=== PATIENT | female | born 1995 | race Caucasian/White ===

== ENCOUNTER 2017-09-13 08:12 | Day surgery (SDC) | payer OTHER ==
[2017-09-13] MEDS: LR 1,000 ML IV (09:19)
[2017-09-13 09:24] LABS: CONTROL LINE UCG INT CTR LINE PRESENT; URINE PREG TEST NEGATIVE (NEGATIVE)
[2017-09-13] MEDS ORDERED: fentaNYL 250 MCG/5 ML INJECTION (J3010) As Ordered (09:43)
[2017-09-13] MEDS ORDERED: ROCURONIUM BROMIDE 50 MG/5 ML VIAL As Ordered (09:43)
[2017-09-13] MEDS ORDERED: LIDOCAINE 2% INJ 100 MG/5 ML SDV (FOR ANES.) As Ordered (09:43)
[2017-09-13] MEDS ORDERED: PROPOFOL 200 MG/20 ML VIAL As Ordered (09:43)
[2017-09-13] MEDS ORDERED: MIDAZOLAM INJ 2 MG/2 ML VIAL (J2250) As Ordered (09:43)
[2017-09-13] MEDS ORDERED: dexameTHASONE 4 MG/ML 1ML VIAL (J1100) As Ordered (11:03)
[2017-09-13] MEDS ORDERED: METOCLOPRAMIDE INJ 10MG/2ML VIAL (J2765) As Ordered ×2 (11:03→12:26)
[2017-09-13] MEDS ORDERED: ONDANSETRON 4MG/2ML VIAL (J2405) As Ordered ×2 (11:03→11:55)
[2017-09-13] MEDS ORDERED: KETOROLAC 60 MG/2 ML VIAL (J1885) As Ordered (11:03)
[2017-09-13] MEDS ORDERED: GLYCOPYRROLATE INJ 0.2 MG/ML 2 ML VIAL As Ordered (11:03)
[2017-09-13] MEDS ORDERED: NEOSTIGMINE 10 MG/10 ML VIAL (J2710) As Ordered (11:03)
[2017-09-13] MEDS: BUPIVACAINE HCL 0.5% 30 ML VIAL As Ordered (11:24)
[2017-09-13] MEDS: ONDANSETRON 4MG/2ML VIAL (J2405) IV (12:03)
[2017-09-13] MEDS ORDERED: LR 1,000 ML IV (12:15)
[2017-09-13] MEDS ORDERED: fentaNYL 100 MCG/2 ML INJECTION (J3010) IV (12:15)
[2017-09-13] MEDS ORDERED: HYDROcodone/APAP LIQUID 7.5-325MG 15ML UDC (LORTAB ELIXIR) PO (12:15)
[2017-09-13] MEDS ORDERED: PERCOCET 5MG/325MG TAB PO (12:15)
[2017-09-13] MEDS ORDERED: IBUPROFEN 800 MG TAB PO (12:15)
[2017-09-13] MEDS: METOCLOPRAMIDE INJ 10MG/2ML VIAL (J2765) IV (12:37)
== END 2017-09-13 13:55 | disposition home or self-care (01) ==
LOC: M SDC 08:12
DX: J35.01 Chronic tonsillitis (principal); F32.9 Major depressive disorder, single episode, unspecified; F41.9 Anxiety disorder, unspecified; Z88.2 Allergy status to sulfonamides; Z88.1 Allergy status to other antibiotic agents; Z79.3 Long term (current) use of hormonal contraceptives
CPT/HCPCS: 42826

== ENCOUNTER 2017-09-15 16:58 | Emergency (ER) | payer OTHER ==
[2017-09-15 20:29] LABS: BASO % 0.2 % (0.0-1.0); EOS % 0.3 % (0.0-3.0); HEMATOCRIT 41.1 % (36.0-47.0); HEMOGLOBIN 13.5 g/dl (12.0-16.0); IMMATURE GRANULOCYTE % 0.2 % (0-3.0); LYMPH # 2.1 10^3/uL (1.5-6.5); LYMPH % 20.3 % (24.0-44.0); MEAN CORPUSCULAR HEMOGLOBIN 28.8 pg (27.0-33.0); MEAN CORPUSCULAR HGB CONC 32.8 g/dl (32.0-36.5); MEAN CORPUSCULAR VOLUME 87.8 fl (80.0-96.0); MONO # 0.5 10^3/uL (0.0-0.8); MONO % 5.1 % (0.0-5.0); NEUTROPHILS # 7.7 10^3/uL (1.8-7.7); NEUTROPHILS % 73.9 % (36.0-66.0); PLATELET COUNT, AUTOMATED 250 10^3/uL (150-450); RED BLOOD COUNT 4.68 10^6/uL (4.00-5.40); RED CELL DISTRIBUTION WIDTH 12.9 % (11.5-14.5); WHITE BLOOD COUNT 10.4 10^3/uL (4.0-10.0)
[2017-09-15] MEDS: NS 1,000 ML IV (20:30)
[2017-09-15] MEDS: ONDANSETRON 4MG/2ML VIAL (J2405) IV (20:31)
[2017-09-15 21:07] LABS: ALBUMIN 3.3 GM/DL (3.2-5.2); ALBUMIN/GLOBULIN RATIO 0.75 (1.00-1.93); ALKALINE PHOSPHATASE 71 U/L (45-117); ALT/SGPT 37 U/L (12-78); ANION GAP 8 MEQ/L (8-16); AST/SGOT 21 U/L (7-37); BILIRUBIN,DIRECT 0.1 MG/DL (0.0-0.2); BILIRUBIN,TOTAL 0.5 MG/DL (0.2-1.0); BLOOD UREA NITROGEN 7 MG/DL (7-18); CALCIUM LEVEL 8.7 MG/DL (8.5-10.1); CARBON DIOXIDE LEVEL 24 MEQ/L (21-32); CHLORIDE LEVEL 107 MEQ/L (98-107); CREATININE FOR GFR 0.54 MG/DL (0.55-1.30); GLOMERULAR FILTRATION RATE > 60.0 (>60); GLUCOSE, FASTING 78 MG/DL (70-100); LIPASE 83 U/L (73-393); POTASSIUM SERUM 3.6 MEQ/L (3.5-5.1); SODIUM LEVEL 139 MEQ/L (136-145); TOTAL PROTEIN 7.7 GM/DL (6.4-8.2)
[2017-09-15] MEDS: diphenhydrAMINE INJ 50MG/ML VIAL (J1200) IV (21:13)
[2017-09-15] MEDS: methylPREDNISolone INJ 125 MG/2 ML VIAL (J2930) IV (21:13)
== END 2017-09-15 22:05 | disposition home or self-care (01) ==
LOC: M ED 16:58
DX: R11.0 Nausea (principal); E86.0 Dehydration; G89.18 Other acute postprocedural pain; Z79.899 Other long term (current) drug therapy; Z88.1 Allergy status to other antibiotic agents
CPT/HCPCS: J1200

== ENCOUNTER 2018-09-27 09:13 | Inpatient (IN) | payer MEDICAID, OTHER ==
[~2018-09-27] VITALS: Ht 170.2 cm; Wt 106.6 kg
[~2018-09-27 09:13] MED LIST: AMOX500T PO; CEPH500C PO; HYDR1SOL; IBUP80TA; NEXP1IMP SC; REGL10TA6 PO
[2018-09-27] MEDS ORDERED: CITA20TA6 PO (09:21)
[2018-09-27] MEDS ORDERED: HYOS125TA PO (09:21)
[2018-09-27] MEDS ORDERED: ALL10TAB28 PO (09:21)
[2018-09-27] MEDS ORDERED: HYDR-3363 PO (09:21)
[2018-09-27 09:52] LABS: HEMATOCRIT 44.7 % (36.0-47.0); HEMOGLOBIN 14.7 g/dl (12.0-15.5); MEAN CORPUSCULAR HEMOGLOBIN 28.3 pg (27.0-33.0); MEAN CORPUSCULAR HGB CONC 32.9 g/dl (32.0-36.5); PLATELET COUNT, AUTOMATED 330 10^3/uL (150-450); WHITE BLOOD COUNT 10.5 10^3/uL (4.0-10.0)
[2018-09-27 10:23] LABS: HCG, SERUM QUALITATIVE NEGATIVE (NEGATIVE)
[2018-09-27 10:29] LABS: ACETAMINOPHEN LEVEL < 2.0 UG/ML (10.0-30.0); ALBUMIN 4.1 GM/DL (3.2-5.2); ALT/SGPT 64 U/L (12-78); BILIRUBIN,DIRECT < 0.1 MG/DL (0.0-0.2); BILIRUBIN,TOTAL 0.4 MG/DL (0.2-1.0); BLOOD UREA NITROGEN 14 MG/DL (7-18); CALCIUM LEVEL 9.4 MG/DL (8.5-10.1); CARBON DIOXIDE LEVEL 23 MEQ/L (21-32); CHLORIDE LEVEL 108 MEQ/L (98-107); CREATININE FOR GFR 0.77 MG/DL (0.55-1.30); ETHYL ALCOHOL (ETHANOL) < 0.003 % (0.000-0.010); GLOMERULAR FILTRATION RATE > 60.0 (>60); GLUCOSE, FASTING 134 MG/DL (70-100); POTASSIUM SERUM 3.9 MEQ/L (3.5-5.1); SALICYLATE LEVEL < 1.7 MG/DL (5.0-30.0); SODIUM LEVEL 139 MEQ/L (136-145); TOTAL PROTEIN 7.7 GM/DL (6.4-8.2)
[2018-09-27 10:36] LABS: AMPHETAMINES LEVEL URINE NEGATIVE (NEGATIVE); BARBITURATES URINE NEGATIVE (NEGATIVE); BENZODIAZEPINES URINE NEGATIVE (NEGATIVE); CANNABINOIDS URINE NEGATIVE (NEGATIVE); COCAINE METABOLITE URINE NEGATIVE (NEGATIVE); METHADONE URINE NEGATIVE (NEGATIVE); OPIATES URINE NEGATIVE (NEGATIVE); PHENCYCLIDINE URINE NEGATIVE (NEGATIVE)
[2018-09-27] MEDS ORDERED: FLON1SPR NARES (11:53)
[2018-09-27] MEDS ORDERED: MOM 30ML SUSPENSION UDC PO PRN (14:00)
[2018-09-27] MEDS ORDERED: MAALOX 30 ML SUSP *UDC PO PRN (14:00)
[2018-09-27 14:50] VITALS: BP 138/78
[2018-09-27 18:00] VITALS: BP 121/69
[2018-09-27] MEDS: traZODone 50 MG TAB PO PRN (21:13)
[2018-09-28 06:52] VITALS: BP 120/72
--- NOTE | 2018-09-28 12:24 | HPEPDOC ---
[facility] Medical History & Physical Date of Admission Sep 28, 2018 History and Physical CHIEF COMPLAINT: Suicidal ideation HISTORY OF PRESENT ILLNESS: Patient is a 23-year-old female with past medical hi story of depression, anxiety, PTSD, borderline personality disorder presented with complaints of suicidal ideation. Patient has been in mental health unit of Hospital for evaluation and treatment. She states that she feels much better today and that talking to her roommate helps with her anxiety and no longer has thoughts of hurting herself. She misses her son but otherwise reported no other complaints including any fever, chills, pain or discomfort. PAST MEDICAL HISTORY: 1. Depression/anxiety. 2. PTSD. 3. Borderline personality disorder. PAST SURGICAL HISTORY: 1. Cholecystectomy. 2. Tonsillectomy. SOCIAL HISTORY: Rare alcohol use. Denies tobacco or illicit drug use. FAMILY HISTORY: Mother has diabetes mellitus ALLERGIES: Please see below. REVIEW OF SYSTEMS: 10 point review of system negative except as stated in HPI HOME MEDICATIONS: Please see below. PHYSICAL EXAMINATION: General: No acute distress, Alert Eyes: Normal sclera, EOMI, RILEY HENT: Atraumatic, neck supple, moist mucous membranes Cardiovascular: Normal rate, normal rhythm. No murmurs appreciated. Pulmonary: Clear to auscultation b/l, no wheezing GI: Soft, nontender, nondistended Skin: Warm and dry Neuro: CN grossly intact. No focal deficits. Strengths equal b/l. Psych: oriented x 3 LABORATORY DATA: See below. MICROBIOLOGY: Please see below. ASSESSMENT AND PLAN: 1. Depression/Anxiety. - Presented with suicidal ideation now reportedly better with no further thoughts. - c/w home medications. - c/w care per Psychiatry. 2. PTSD - c/w therapy and management per Psych. Vital Signs Vital Signs Date Time Temp Pulse Resp B/P (MAP) Pulse Ox O2 Delivery O2 Flow Rate FiO2 09/28/18 06:52 97.7 65 16 120/72 (88) 09/27/18 14:38 98 09/27/18 12:59 Room Air Home Medications Scheduled Cetirizine HCl (Cetirizine HCl) 10 Mg Tablet, 10 MG PO QHS Citalopram Hydrobromide (Citalopram HBr) 20 Mg Tablet, 20 MG PO QHS Scheduled PRN Fluticasone Propionate (Flonase Allergy Relief) 9.9 Ml [place].susp, 2 SPRAY NARES DAILY PRN for NASAL CONGESTION Hydroxyzine HCl (Hydroxyzine HCl) 25 Mg Tablet, 25 MG PO BID PRN for ANXIETY/AGITATION Hyoscyamine Sulfate (Hyoscyamine Sulfate) 0.125 Mg Tab.subl, 0.125 MG PO TID PRN for ABDOMINAL PAIN Allergies Coded Allergies: sulfamethoxazole (Verified Allergy, Unknown, 09/27/18) trimethoprim (Verified Allergy, Unknown, 09/27/18) SARA BELLA MD Sep 28, 2018 12:24
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
[2018-09-28 18:00] VITALS: BP 128/82
[2018-09-28] MEDS: ACETAMINOPHEN TAB 650MG DOSE (2X325MG) PO PRN (20:30)
[2018-09-28] MEDS: CitaloPRAM (CeleXA) 10 MG TABLET PO SCH (21:29)
[2018-09-28] MEDS: hydrOXYzine 25 MG TAB PO PRN (21:29)
[2018-09-28] MEDS: traZODone 50 MG TAB PO PRN (21:29)
[2018-09-29 06:54] VITALS: BP 97/46
[2018-09-29] MEDS: hydrOXYzine 25 MG TAB PO PRN (09:09)
[2018-09-29] MEDS: ACETAMINOPHEN TAB 650MG DOSE (2X325MG) PO PRN (09:09)
--- NOTE | 2018-09-29 11:56 | MHIPN ---
DATE: 09/29/2018 SUBJECTIVE: "I feel more relaxed today. I spoke to my son and my ". OBJECTIVE: She is a 23-year-old female, , living with her and 6-year-old son, who was admitted because of suicidal ideation. This is her first psychiatric hospitalization, though she has history of depression for a long time. She is being followed up at [facility]. She reports she is feeling better, less depressed and there are no suicidal thoughts. MENTAL STATUS EXAMINATION: She is casually dressed with clean clothes, good personal hygiene. Behavior is cooperative. Eye contact is normal. Psychomotor activity is normal. Speech rate, rhythm and volume are good. Mood is mildly depressed and affect is mood congruent. Thought process linear, goal directed. Thought content: Denied any suicidal or homicidal thoughts. Denied any paranoid or bizarre delusions. She is alert and oriented to time, place and person. Her memory is intact. Her insight and judgment are fair. DIAGNOSES: Depressive disorder unspecified. Rule out major depressive disorder. Post traumatic stress disorder. Borderline personality traits by history. VITAL SIGNS: Temperature 98.4, pulse is 56, respiratory rate 18, blood pressure 97/46. PLAN: To continue current medication. Continue individual and group therapy. Coordination of care was provided with social work, nursing staff and treatment team. ESTIMATED LENGTH OF STAY: 4-5 days.
[2018-09-29 18:00] VITALS: BP 119/65
[2018-09-29] MEDS: CitaloPRAM (CeleXA) 10 MG TABLET PO SCH (21:54)
[2018-09-29] MEDS: traZODone 50 MG TAB PO PRN (21:54)
[2018-09-30 06:37] VITALS: BP 110/55
[2018-09-30] MEDS: hydrOXYzine 25 MG TAB PO PRN ×2 (08:29→21:41)
--- NOTE | 2018-09-30 08:54 | MHIPNPDOC ---
[facility] Progress Note Progress Note DATE OF SERVICE: 09/30/18 HISTORY: Per Admit note: The patient has a long history of depressive disorder. However, for the last 1 month, her depression has increased. It has worsened in a couple of days. She had suicidal thoughts. She wanted to get help before it worsened further and came to the hospital. Complains of decreased sleep, decreased energy, decreased concentration, suicidal thoughts. The patient has a history of racing thoughts, some mood swings which she relates it to a diagnosis of borderline personality traits. Her current stressors are her works out of town several times and a relationship problem with her [id number]. OBJECTIVE: She is a 23-year-old female, , living with her and 6-year-old son, who was admitted because of suicidal ideation. This is her first psychiatric hospitalization, though she has history of depression for a long time. She is being followed up at [facility]. Pt seen today and reports she's feeling better after medication increased yesterday. States her anxiety is improving with prn vistaril but doesn't believe she needs to take it first thing in the morning as Dr Medley recommended as her anxiety isn't too bad and goes away on it's own in less than an hour without taking anything, plus it makes her fatigued. Recommended she just take vistaril when anxiety overwhelming and not subsiding on it's own. Is sleeping well. Is attending groups and finding beneficial. Denies SI/HI, hallucinations, delusions. Feels safe here. MENTAL STATUS EXAMINATION: She is casually dressed with clean clothes, good personal hygiene. Behavior is cooperative. Eye contact is normal. Psychomotor activity is normal. Speech rate, rhythm and volume are good. Mood is mildly anxious and affect is mood congruent. Thought process linear, goal directed. Thought content: Denied any suicidal or homicidal thoughts. Denied any paranoid or bizarre delusions. She is alert and oriented to time, place and person. Her memory is intact. Her insight and judgment are fair. DIAGNOSES: Depressive disorder unspecified. Rule out major depressive disorder. Post traumatic stress disorder. Borderline personality traits by history. PLAN: To continue current medication. Continue individual and group therapy. Coordination of care was provided with social work, nursing staff and treatment team. Citalopram 30 mg QHS Hydroxyzine 25 mg Q6HP PRN PO ANXIETY Trazodone 50 mg QHSP PRN PO INSOMNIA Vital Signs Vital Signs Date Time Temp Pulse Resp B/P (MAP) Pulse Ox O2 Delivery O2 Flow Rate FiO2 09/30/18 06:37 98.6 60 14 110/55 (73) 09/27/18 14:38 98 09/27/18 12:59 Room Air Current Medications Current Medications Acetaminophen (Tylenol Tab) 650 mg Q6HP PRN PO HEADACHE or DISCOMFORT Last administered on 09/29/18at 09:09; Start 09/27/18 at 14:00 Al Hydrox/Mg Hydrox/Simethicone (Mylanta) 30 ml Q4HP PRN PO HEARTBURN/INDIGESTION; Start 09/27/18 at 14:00 Citalopram Hydrobromide (CeleXA) 30 mg QHS PO Last administered on 09/29/18at 21:54; Start 09/28/18 at 21:00 Home Med (Med Rec Complete!) ASDIRECTED XX ; Start 09/27/18 at 12:00; Stop 09/27/18 at 12:00; Status DC Hydroxyzine HCl (Atarax) 25 mg Q6HP PRN PO ANXIETY Last administered on 09/30/18at 08:29; Start 09/28/18 at 11:30 Magnesium Hydroxide (Milk Of Magnesia) 30 ml DAILYPRN PRN PO CONSTIPATION; Start 09/27/18 at 14:00 Trazodone HCl (Desyrel) 50 mg QHSP PRN PO INSOMNIA Last administered on 09/29/18at 21:54; Start 09/27/18 at 14:00 Allergies Coded Allergies: sulfamethoxazole (Verified Allergy, Unknown, 09/27/18) trimethoprim (Verified Allergy, Unknown, 09/27/18) LAURA PARKER DO Sep 30, 2018 8:54 am
[2018-09-30 18:23] VITALS: BP 128/73
[2018-09-30] MEDS: CitaloPRAM (CeleXA) 10 MG TABLET PO SCH (21:41)
[2018-09-30] MEDS: traZODone 50 MG TAB PO PRN (21:41)
[2018-10-01 06:49] VITALS: BP 99/50
[2018-10-01 18:00] VITALS: BP 122/60
[2018-10-01] MEDS: ACETAMINOPHEN TAB 650MG DOSE (2X325MG) PO PRN (20:28)
[2018-10-01] MEDS: CitaloPRAM (CeleXA) 10 MG TABLET PO SCH (22:18)
[2018-10-01] MEDS: traZODone 50 MG TAB PO PRN (22:18)
[2018-10-01] MEDS: hydrOXYzine 25 MG TAB PO PRN (22:18)
[2018-10-02 06:38] VITALS: BP 99/52
[2018-10-02 18:04] VITALS: BP 129/79
[2018-10-02] MEDS: traZODone 50 MG TAB PO PRN (21:10)
[2018-10-02] MEDS: hydrOXYzine 25 MG TAB PO PRN (21:10)
[2018-10-02] MEDS: CitaloPRAM (CeleXA) 10 MG TABLET PO SCH (21:11)
[2018-10-03 07:01] VITALS: BP 112/53
[2018-10-03] MEDS ORDERED: HYDR-3363 PO (08:57)
[2018-10-03] MEDS ORDERED: CELE10TA PO (08:57)
[2018-10-03] MEDS ORDERED: TRAZO50TA PO (08:57)
--- NOTE | 2018-10-03 08:58 | MHDSPDOC ---
[facility] Discharge Summary Discharge Summary DATE OF ADMISSION: Sep 27, 2018 at 1:47 pm DATE OF DISCHARGE: October 03, 2018 DISCHARGE DIAGNOSES: Depressive disorder unspecified. Rule out major depressive disorder. Post traumatic stress disorder. Borderline personality traits by history. REASON FOR ADMISSION: Per Admit note: The patient has a long history of depressive disorder. However, for the last 1 month, her depression has increased. It has worsened in a couple of days. She had suicidal thoughts. She wanted to get help before it worsened further and came to the hospital. Complains of decreased sleep, decreased energy, decreased concentration, suicidal thoughts. The patient has a history of racing thoughts, some mood swings which she relates it to a diagnosis of borderline personality traits. Her current stressors are her works out of town several times and a relationship problem with her [id number]. CONSULTANTS INVOLVED: none TREATMENT AND PROGRESS ON THE UNIT : Pt was admitted to [facility], seen for psychiatric assessment and restarted on her outpatient celexa increased to 30mg daily for mood and anxiety. She was provided vistaril 25mg q6hr prn anxiety and trazodone 50mg qhs prn insomnia. Pt found her medications beneficial and tolerated them well. She attended groups daily during her stay. Her symptoms improved with treatment. On day of discharge she denied depression, anxiety, insomnia, SI/HI, hallucinations, delusions. She was discharged home after family meeting with her with follow-up at [facility]. She felt safe for discharge. DISCHARGE ASSESSMENT: Pt seen today and reports she's feels good and that her medication is beneficial and she's tolerating it well. States her anxiety is improving with prn vistaril. Is sleeping well. Is attending groups and finding beneficial. Denies depression, anxiety, insomnia, SI/HI, hallucinations, delusions. Feels safe to be discharged home with her . MENTAL STATUS EXAMINATION ON DISCHARGE: She is casually dressed with clean clothes, good personal hygiene. Behavior is cooperative. Eye contact is normal. Psychomotor activity is normal. Speech rate, rhythm and volume are good. Mood is euthymic and full. Thought process linear, goal directed. Thought content: Denied any suicidal or homicidal thoughts. Denied any paranoid or bizarre delusions. She is alert and oriented to time, place and person. Her memory is intact. Her insight and judgment are good. MEDICATIONS ON DISCHARGE: Citalopram 30 mg QHS Hydroxyzine 25 mg Q6HP PRN PO ANXIETY Trazodone 50 mg QHSP PRN PO INSOMNIA PLAN/FOLLOWUP ARRANGEMENTS: D/c home with follow-up at [facility]. The amount of time spent in the coordination of care for this patient was approximately 30 minutes. Vital Signs/I&Os Vital Signs Date Time Temp Pulse Resp B/P (MAP) Pulse Ox O2 Delivery O2 Flow Rate FiO2 10/03/18 07:01 98.4 67 16 112/53 (72) 09/27/18 14:38 98 09/27/18 12:59 Room Air Medications Scheduled Cetirizine HCl (Cetirizine HCl) 10 Mg Tablet, 10 MG PO QHS, (Reported) Citalopram Hydrobromide (Celexa) 10 Mg Tablet, 30 MG PO QHS for mood, #30 Scheduled PRN Fluticasone Propionate (Flonase Allergy Relief) 9.9 Ml [place].susp, 2 SPRAY NARES DAILY PRN for NASAL CONGESTION, (Reported) Hydroxyzine HCl (Hydroxyzine HCl) 25 Mg Tablet, 25 MG PO Q6HP PRN for ANXIETY, #30 Hyoscyamine Sulfate (Hyoscyamine Sulfate) 0.125 Mg Tab.subl, 0.125 MG PO TID PRN for ABDOMINAL PAIN, (Reported) Trazodone HCl (Trazodone HCl) 50 Mg Tablet, 50 MG PO QHSP PRN for INSOMNIA, #10 Allergies Coded Allergies: sulfamethoxazole (Verified Allergy, Unknown, 09/27/18) trimethoprim (Verified Allergy, Unknown, 09/27/18) LAURA PARKER DO Oct 03, 2018 8:58 am
== END 2018-10-03 12:20 | disposition home or self-care (01) | DRG 754 ==
LOC: M ED 09:13 → M ED INP 13:47 → M PSY 14:49
PROVIDERS: ADMIT Psychiatry & Neurology Psychiatry; ATTEND Psychiatry & Neurology Psychiatry
DX: F32.9 Major depressive disorder, single episode, unspecified (principal); R45.851 Suicidal ideations; F43.10 Post-traumatic stress disorder, unspecified; F60.3 Borderline personality disorder; Z79.899 Other long term (current) drug therapy; Z88.2 Allergy status to sulfonamides; Z88.8 Allergy status to other drugs, medicaments and biological substances

== ENCOUNTER 2019-05-16 16:13 | Emergency (ER) | payer MEDICAID, OTHER ==
[~2019-05-16] VITALS: Ht 170.2 cm; Wt 109.0 kg
[~2019-05-16 16:13] MED LIST changes: +ALL10TAB29 PO; +CELE10TA PO; +CITA20TA6 PO; +FLON1SPR NARES; +HYDR-3363 PO; +HYOS125TA PO; +TRAZ1TAB10 PO
[2019-05-16] MEDS ORDERED: ACETAMINOPHEN 500 MG TAB PO ONE (18:00)
[2019-05-16] MEDS ORDERED: KETOROLAC 60 MG/2 ML VIAL (J1885) IM ONE (18:00)
[2019-05-16] MEDS ORDERED: BENZOCAINE 20% GEL 9GM TUBE (ANBESOL MAX STRENGTH) TOP ONE (18:00)
[2019-05-16 18:58] VITALS: BP 124/73
== END 2019-05-16 19:02 | disposition home or self-care (01) ==
LOC: M ED 16:13
DX: K08.89 Other specified disorders of teeth and supporting structures (principal); F33.9 Major depressive disorder, recurrent, unspecified; F41.9 Anxiety disorder, unspecified; F43.10 Post-traumatic stress disorder, unspecified; Z79.899 Other long term (current) drug therapy; Z88.2 Allergy status to sulfonamides; Z88.8 Allergy status to other drugs, medicaments and biological substances
CPT/HCPCS: 96372; 99283; J1885

== ENCOUNTER → 2019-09-16 | Outpatient (CLI) | payer OTHER | LOC: M LABSMTC 11:08 | PROVIDERS: ATTEND Family Medicine | DX: Z11.59 Encounter for screening for other viral diseases (principal); Z20.828 Contact with and (suspected) exposure to other viral communicable diseases | CPT/HCPCS: 87502; U0002 ==

== ENCOUNTER → 2021-05-14 | Outpatient (REF) | payer OTHER ==
[~2021-05-14] MED LIST changes: -ALL10TAB29 PO; +CETI-24 PO
== END ==
LOC: M LAB REF 15:43
PROVIDERS: ATTEND Physician Assistant
DX: R43.8 Other disturbances of smell and taste (principal)

== ENCOUNTER 2022-09-05 01:21 | Outpatient (CLI) | payer OTHER ==
[~2022-09-05] VITALS: Ht 170.2 cm; Wt 73.5 kg
[2022-09-05] VITALS (10 sets, daily range): BP systolic 92–124; BP diastolic 50–71
[~2022-09-05 01:21] MED LIST changes: +ETON68IM SC; -NEXP1IMP SC
[2022-09-05] MEDS ORDERED: NOXI1TAB PO (01:40)
[2022-09-05] MEDS ORDERED: PRENTAB9 PO (01:40)
[2022-09-05] MEDS ORDERED: HOME MED LIST COMPLETE! XX SCH (01:45)
[2022-09-05 03:32] LABS: APPEARANCE, URINE CLEAR (CLEAR); BACTERIA, URINE AUTO NEGATIVE (NEGATIVE); BILIRUBIN, URINE AUTO NEGATIVE (NEGATIVE); BLOOD, URINE BLOOD NEGATIVE (NEGATIVE); COLOR, URINE YELLOW (YELLOW); GLUCOSE, URINE (UA) AUTO NEGATIVE (NEGATIVE); KETONE, URINE AUTO 1+ mg/dL (NEGATIVE); LEUKOCYTE ESTERASE, URINE AUTO NEGATIVE (NEGATIVE); MUCUS, URINE SMALL (NEGATIVE); NITRITE, URINE AUTO NEGATIVE (NEGATIVE); PROTEIN, URINE AUTO NEGATIVE (NEGATIVE); RBC, URINE AUTO 0 /HPF (0-3); SPECIFIC GRAVITY URINE AUTO 1.011 (1.002-1.035); SQUAMOUS EPITHELIAL CELL UR AU 0 /HPF (0-6); WBC, URINE AUTO 0 /HPF (0-3)
[2022-09-05] MEDS ORDERED: ACETAMINOPHEN 500 MG TAB PO PRN (10:35)
[2022-09-05] MEDS ORDERED: BETAMETHASONE SOLUSPAN 6MG/ML 5ML VIAL IM ONE (23:00)
== END 2022-09-05 22:57 | disposition home or self-care (01) ==
LOC: M LDO 01:21
PROVIDERS: ATTEND Advanced Practice Midwife
DX: O60.03 Preterm labor without delivery, third trimester (principal); O99.843 Bariatric surgery status complicating pregnancy, third trimester; Z3A.34 34 weeks gestation of pregnancy
CPT/HCPCS: 59025; 81001; 87081; G0463; J0702

== ENCOUNTER → 2022-09-09 | Outpatient (REF) ==
[~2022-09-09] MED LIST changes: +NOXI1TAB PO; +PRENTAB9 PO
== END ==
LOC: M LAB REF 22:40
DX: Z79.899 Other long term (current) drug therapy (principal)

== ENCOUNTER → 2025-06-09 | Outpatient (REF) | payer OTHER | LOC: M LAB REF 17:53 | DX: B34.9 Viral infection, unspecified (principal) ==